=== PATIENT | male | born 1940 | race Caucasian/White ===

== ENCOUNTER 2024-03-06 09:01 | Day surgery (SDC) | payer MEDICARE, OTHER ==
[~2024-03-06] VITALS: Ht 177.8 cm; Wt 58.7 kg
[~2024-03-06 09:01] MED LIST: CENTRUM SILVER1 TAB PO; LR 1,000 ML IV SCH
[2024-03-06] MEDS ORDERED: 1/2 NS 1,000 ML IV SCH (09:30)
[2024-03-06] MEDS ORDERED: NS Flush 10 ML SYRINGE PRN ICA (09:30)
[2024-03-06 09:53] VITALS: BP 125/69; PULSE 80; TEMP 98.4
[2024-03-06 09:57] LABS: HEMATOCRIT 41.1 % (42.0-52.0); HEMOGLOBIN 14.1 g/dl (13.5-18.0); MEAN CELL VOLUME 94 fl (80.0-100.0); MEAN CORPUSCULAR HEMOGLOBIN 32 pg (27-31); MEAN CORPUSCULAR HGB CONC 34 g/dl (33.0-37.0); MEAN PLATELET VOLUME 11.1 fl (7.4-10.4); PLATELET COUNT 182 K/mm3 (130-400); RED BLOOD COUNT 4.39 M/mm3 (4.20-5.60); REDCELL DISTRIBUTION WIDTH-CV 12.4 % (11.5-14.5)
[2024-03-06 10:09] LABS: CALCIUM 9.8 mg/dL (8.4-10.2); CREATININE, serum 0.86 mg/dL (0.72-1.25); POTASSIUM 4.2 mEq/L (3.5-4.5)
[2024-03-06 10:12] LABS: INR 1.1 (0.8-3.0); PROTHROMBIN TIME 12.2 SECONDS (9.7-12.8)
[2024-03-06] MEDS ORDERED: Lidocaine PF 2% (20 MG/ML) 5 ML VIAL ONE (12:37)
--- NOTE | 2024-03-06 12:44 | NUR ---
Please see mod sed flowsheet for record of DELIA with Dr. Mcgowan in the express unit.
[2024-03-06 13:15] VITALS: BP 121/67; PULSE 68
--- NOTE | 2024-03-06 13:28 | NUR ---
Pt alert, talkative. Water provided, he swallows without issue. He denies desire for food at this time. Daughter at bedside. Call light in reach.
[2024-03-06 13:30] VITALS: BP 113/60; PULSE 62
[2024-03-06 13:45] VITALS: BP 114/65; PULSE 62
[2024-03-06 14:00] VITALS: BP 119/72; PULSE 60
--- NOTE | 2024-03-06 14:12 | NUR ---
DC instrucitons reviewed with pt and daughter. Both express understanding. Pt steady on feet in room. He has drank glass of water, no issues swallowing. Continues to deny desire for snack. IV DC'd, site wrapped with coban. He is assisted out to daughter's car by wheelchair with belongings.
[2024-03-06] MEDS ORDERED: NS Flush 10 ML SYRINGE BID ICA SCH (21:00)
== END 2024-03-06 14:12 | disposition home or self-care (01) ==
LOC: COL.CAR 09:01
PROVIDERS: Internal Medicine Cardiovascular Disease
DX: I34.0 Nonrheumatic mitral (valve) insufficiency (principal); I35.0 Nonrheumatic aortic (valve) stenosis; Z87.891 Personal history of nicotine dependence; Z77.22 Contact with and (suspected) exposure to environmental tobacco smoke (acute) (chronic)
CPT/HCPCS: J2704